=== PATIENT | male | born 1955 | race Caucasian/White ===

== ENCOUNTER → 2023-11-11 | Outpatient (CLI) | payer OTHER, SELFPAY ==
--- NOTE | 2023-11-11 09:14 | DI.NM.S_ITS ---
PROCEDURE: NM BONE SCAN WHOLE BODY RADIOPHARMACEUTICAL: 20.6 mCi Tc-99m MDP IV. INDICATIONS: Malignant neoplasm of prostate TECHNIQUE: Delayed whole-body scintigrams were obtained approximately 3-4 hours after intravenous injection of radiotracer. Anterior and posterior views were acquired from vertex to feet. Additional oblique views of the pelvis. COMPARISON: None. FINDINGS: There are foci of increased activity in the left scapula, the left 5th and 6th ribs, L2, possibly L3, sacrum, iliac bones bilaterally, right acetabulum, and distal left tibia, consistent with osseous metastases. IMPRESSION: There are multiple foci of osseous metastatic disease. Recommend radiographic correlation. Dictated by: Dequan Hercules M.D. on 11/11/2023 at 16:02 Approved by: Dequan Hercules M.D. on 11/11/2023 at 20:01
== END ==
LOC: NUCM 09:13
PROVIDERS: PCP Internal Medicine Hematology & Oncology; Referring Provider Internal Medicine Hematology & Oncology; Visit Provider Internal Medicine Hematology & Oncology
DX: C61 Malignant neoplasm of prostate (principal); C79.51 Secondary malignant neoplasm of bone; C77.2 Secondary and unspecified malignant neoplasm of intra-abdominal lymph nodes
CPT/HCPCS: 78306; A9503